=== PATIENT | male | born 1975 | race Hispanic/Latino ===

== ENCOUNTER 2018-08-18 20:19 | Observation (INO) | payer OTHER, SELFPAY ==
[2018-08-18 20:20] VITALS: BP 145/85; PULSE 112; RESP 22; TEMP 37.1; O2SAT 99; BMI 25.8
--- NOTE | 2018-08-18 21:08 | CT_ITS ---
STUDY: CT ABDOMEN AND PELVIS WITH CONTRAST REASON FOR EXAM: Male, 43 years old. Left abdominal pain and vomiting. Colonoscopy earlier today. RADIATION DOSAGE (If Supplied By Facility): CTDIvol = ( 14.43 ) mGy, DLP = ( 662.42 ) mGycm TECHNIQUE: Transaxial images were obtained from the dome of the diaphragm to the symphysis pubis with oral contrast. 100ml IV/Oral Isovue 300 was administered. Sagittal and coronal images were reconstructed. Individualized dose optimization techniques were used for this CT. COMPARISON: None. FINDINGS: There are dependent changes at both lung bases. The visualized portions of the heart are within normal limits. Normal liver. Normal gallbladder and extrahepatic biliary system. Normal spleen. Normal pancreas. Normal bilateral adrenal glands. Normal right kidney. Normal right ureter. The left kidney demonstrates slightly decreased enhancement when compared to the right. There is marked stranding and edema of the surrounding pararenal fat. There is mild hydronephrosis and ureterectasis to the level of L4 where there is nonobstructing 3 mm ureteral calculus (image 71, series 2).. The distal left ureter is unremarkable. The stomach is distended with contrast. Normal small intestine. There is gaseous distention of the proximal colon. There are scattered sigmoid diverticuli without acute inflammatory change. The appendix is visualized and appears normal. Normal abdominal aorta. Normal inferior vena cava. Normal retroperitoneum. Normal urinary bladder. Normal prostate. There is no pelvic lymphadenopathy or mass. No free air or free fluid is seen within the peritoneal cavity. Umbilical hernia of omental fat. Abdominal wall is otherwise unremarkable. Normal osseous structures. CT/Abdomen/Pelvis WITH Contrast IMPRESSION: 1. Calculus in the mid left kidney with obstructive uropathy. 2. Mild gaseous distention of proximal colon without evidence of perforation or other acute abnormality. 3. Minimal dependent changes in the lung bases. 4. Sigmoid diverticulosis. Electronically Signed: Homer Pires DO at 23:47 EDT Tel [phone], Service support ,
--- NOTE | 2018-08-18 21:10 | ED.DCSUM_ITS ---
- ER Visit Summary Date of Service: 08/18/18 Chief Complaint: Abdominal pain History of Present Illness: The patient is a 43 M presenting with abdominal pain. Patient states he has been having abdominal pain intermittently for the past 4 months. He states he has had work-ups with no known cause of his pain. He had a colonoscopy per Dr. Horta today. He states following this he has been having vomiting and worsening pain left lower quadrant. He denies fever. Denies other complaints. Physical Examination: Vitals are stable. Patient is afebrile. Alert no acute distress. HEENT exam is unremarkable. Neck is supple. Lungs are clear and equal bilaterally. Heart is regular rate and rhythm. Abdomen is soft left lower quadrant tenderness with no rebound or guarding Extremities are unremarkable. Skin is warm and dry. No focal neurologic deficit. Remainder of exam is unremarkable. Emergency Department Course and Treatment: Patient was given morphine, Zofran IV. CBC, chemistries unremarkable other than BUN 22, creatinine 1.38. CT abdomen pelvis shows calculus in the mid left kidney with obstructive uropathy. Mild gaseous distention of proximal colon without evidence of perforation or other acute abnormality. Minimal dependent changes in the lung bases. Sigmoid diverticulosis. Patient continues to have pain and was given additional morphine. His pain was intermittently improved and then returned. He was given Dilaudid. Discussed with Dr. Quintana. Patient will be admitted. Disposition: Observation Impression: Obstructive uropathy, intractable pain This note was generated with [employer] dictation software. It may contain incorrect words, spelling, and punctuation that were not noted in review of the chart prior to signing ED Disposition - Plan for ED Patient: Referrals: NOT,DEFINED [NON-STAFF] -
[2018-08-18] MEDS: morphine 8 MG/ML Syringe IV (21:21)
[2018-08-18] MEDS: Ondansetron 4 MG/2 ML Vial IV (21:22)
[2018-08-18 21:47] LABS: Anion Gap 5 (5-15); BUN 22 mg/dL (7-18); BUN/Creat Ratio 15.9 RATIO (10-20); Calcium,Total 8.7 mg/dL (8.5-10.1); Chloride 105 mmol/L (98-107); Creatinine, Serum 1.38 mg/dL (0.70-1.30); EST Glomerular Filtration Rate 59 mL/min (>60); Est Glom Filt Rate - Afr Amer 72 mL/min (>60); Estimated Creatinine Clearance 61.64 ml/min; Glucose 111 mg/dL (74-106); Potassium 3.9 mmol/L (3.5-5.1); Sodium Level 139 mmol/L (136-145)
[2018-08-18 22:00] VITALS: BP 151/78; PULSE 89; RESP 16; O2SAT 97
[2018-08-18 22:31] LABS: Absolute Lymphocyte Count 0.68 X10^3/ul (0.83-4.51); Absolute Neutrophil Count 9.6 X10^3/uL (2.0-7.7); Basophil# 0.01 X10^3/uL; Basophil% 0.1 % (0-1); Hematocrit 45.6 % (40-54); Hemoglobin 15.2 g/dl (13.0-16.5); Lymphocyte # 0.68 X10^3/ul (4.0); Lymphocyte % 6.2 % (19-41); Mean Corp Hgb Conc 33.3 g/gl (32-36); Mean Corpuscular Hgb 29.2 pg (27.0-32.0); Mean Corpuscular Volume 87.7 fL (80-94); Mean Platelet Vol. 12.5 fl (6.2-12.0); Monocyte# 0.61 X10^3/uL; Monocyte% 5.6 % (0-10); Neutrophil # 9.57 X10^3/uL (2.7-7.7); Neutrophil % 87.9 % (47-70); Platelet Count 202 K/mm3 (150-450); RBC Distribution Width CV 13.2 % (11.6-14.6); RBC Distribution Width SD 42.4 fl (35.1-43.9); White Blood Count 10.9 K/mm3 (4.4-11.0)
[2018-08-18 22:32] LABS: POSITIVE COUNT NO; POSITIVE DIFFERENTIAL NO; POSITIVE MORPHOLOGY NO
[2018-08-18] MEDS: Morphine 4 MG/ML Syringe IV (23:25)
[2018-08-19] VITALS (13 sets, daily range): BP systolic 100–136; BP diastolic 68–90; PULSE 80–109; RESP 16–20; TEMP 36.7–37.3; O2SAT 94–99; BMI 25.4; BMI 25.5; BMI 25.6
--- NOTE | 2018-08-19 00:49 | ED.RN ---
DR PAUL SPRAGUE FOR DR GAN
[2018-08-19] MEDS: HYDROmorphone 1 MG/ML Syringe IV (00:53)
--- NOTE | 2018-08-19 01:00 | NURSING ---
CALL REPORT TO ESTRADA ARAIZA AT THIS TIME.
[2018-08-19] MEDS: 0.9% Normal Saline 1,000 ML 100 ML IV ×3 (02:10→17:42)
[2018-08-19] MEDS: Ondansetron 4 MG/2 ML Vial IV (02:15)
[2018-08-19] MEDS: 0.9% NaCl Peripheral Flush Adult/Peds IV ×3 (02:15→19:31)
[2018-08-19] MEDS: Ketorolac 15 MG/ML Vial IV ×2 (07:39→19:31)
--- NOTE | 2018-08-19 07:57 | PCM.HP.STD ---
History of Present Illness Date of Admission: 08/19/18 Chief Complaint: left flank pain The patient is a 43 year old male had colonoscopy, then presented with left flank pain has a large stone in mid left ureter, admitted for pain control. Past Medical History Allergies No Known Allergies Allergy (Verified 08/18/18 20:26) Home Medications: Ambulatory Orders Medication Instructions Recorded NK 08/18/18 Surgical History: - - knees, neck and lower back surgery Psychiatric History: No pertinent psych hx Lives: Spouse/ Significant Other Smoking Status: Never smoker Tobacco Use: Non-smoker Alcohol: None Drugs: None - *Family History Maternal History Items: - - no stones. Sibling History Items: - - kidney stones Review of Systems Constitutional: Denies: Chills, Fever, Weight Change HEENT: Denies: Head Aches, Sinus Congestion, Sinus Drainage Cardiovascular: Denies: Chest Pain, Palpitations Respiratory: Denies: Cough, Shortness of breath at rest, Sputum production Gastrointestinal: Reports: Abdominal Pain, Vomiting. Denies: Nausea Genitourinary: Denies: Dysuria Musculoskeletal: Denies: Joint Pain, Joint Tenderness Skin: Denies: Rash, Wounds Neurological: Denies: Numbness, Tingling, Focal weakness Psychiatric: Denies: Anxiety, Depression, Homicidal Ideations, Suicidal Ideations Hematologic/ Lymphatic: Denies: Easy Bruising, Easy Bleeding VTE Information - Inpt Only VTE Present on Admission: No VTE Mechan Device Prophylaxis: SCD's - Physical Exam General: Alert, Oriented x3, Cooperative HEENT: Atraumatic, PERRLA, EOMI, Normocephalic Neck: Supple, No JVD, Negative Carotid Bruits Lungs: Clear to auscultation, Normal air movement Cardiovascular: Regular rate, No murmurs Abdomen: Bowel Sounds Present, Soft, Non Tender Extremities: No edema, Capillary Refill Less than 3 Seconds Skin: No rashes, No breakdown Musculoskeletal: No Tenderness to Palpation of Joints or Extremities Neurological: Cranial nerves II-XII grossly intact Psych/Mental Status: Normal Affect, Appropriate Vital Signs Temp Pulse Resp BP Pulse Ox 98.3 F 104 H 18 109/79 95 08/19/18 06:27 08/19/18 06:27 08/19/18 06:27 08/19/18 06:27 08/19/18 06:27 Oxygen Flow Rate (L/min) 2 Oxygen Delivery Method Room Air Weight: 71.7 kg Body Mass Index (BMI) 25.4 Intake and Output for Last 24 Hours 08/17/18 08/18/18 08/19/18 23:59 23:59 23:59 Intake Total 448 / 448 Output Total 350 / 350 Balance 98 / 98 Laboratory Tests Past 24 Hrs 08/18/18 08/18/18 21:20 21:20 WBC 10.9 RBC 5.20 Hgb 15.2 Hct 45.6 MCV 87.7 MCH 29.2 MCHC 33.3 RDW 13.2 RDW Differential 42.4 Plt Count 202 MPV 12.5 H Immature Gran % (Auto) 0.200 Neut % (Auto) 87.9 H Lymph % (Auto) 6.2 L [place] % (Auto) 5.6 Eos % (Auto) 0.0 Baso % (Auto) 0.1 Absolute Neuts (auto) 9.6 H Absolute Lymphs (auto) 0.68 L Total Counted Not Reportable Sodium 139 Potassium 3.9 Chloride 105 Carbon Dioxide 29.0 Anion Gap 5 BUN 22 H Creatinine 1.38 H Estim Creat Clear Calc 61.64 Est GFR (MDRD) Af Amer 72 Est GFR (MDRD) Non-Af 59 L BUN/Creatinine Ratio 15.9 Glucose 111 H Calcium 8.7 Assessment/Plan 43 yo male with kidney stone. plan to admit for pain control plan for left stent for kidney stone.
[2018-08-19 14:08] LABS: Absolute Lymphocyte Count 1.37 X10^3/ul (0.83-4.51); Absolute Neutrophil Count 9.1 X10^3/uL (2.0-7.7); Basophil# 0.01 X10^3/uL; Basophil% 0.1 % (0-1); Eosinophil# 0.01 X10^3/uL; Eosinophils% 0.1 % (0-5); Hemoglobin 14.2 g/dl (13.0-16.5); Lymphocyte # 1.37 X10^3/ul (4.0); Lymphocyte % 11.7 % (19-41); Mean Corpuscular Hgb 29.5 pg (27.0-32.0); Mean Corpuscular Volume 89.2 fL (80-94); Mean Platelet Vol. 12.4 fl (6.2-12.0); Monocyte# 1.18 X10^3/uL; Monocyte% 10.1 % (0-10); Neutrophil # 9.07 X10^3/uL (2.7-7.7); Neutrophil % 77.8 % (47-70); Platelet Count 173 K/mm3 (150-450); RBC Distribution Width CV 13.5 % (11.6-14.6); RBC Distribution Width SD 43.5 fl (35.1-43.9); Red Blood Count 4.82 M/mm3 (4.6-6.2); White Blood Count 11.7 K/mm3 (4.4-11.0)
[2018-08-19 14:09] LABS: POSITIVE COUNT NO; POSITIVE DIFFERENTIAL NO; POSITIVE MORPHOLOGY NO
[2018-08-19 14:13] LABS: International Normalized Ratio 1.2; Prothrombin Time (Protime)PT. 14.9 SECONDS (11.7-14.9)
[2018-08-19 14:14] LABS: Partial Thromboplast Time 27.6 Seconds (24.1-36.2)
--- NOTE | 2018-08-19 16:18 | PCM.DC.URO ---
Discharge Diet: Light diet - advance as tolerated Discharge Activity: Return to Normal Activity Allergies/Adverse Reactions: Allergies No Known Allergies Allergy (Verified 08/18/18 20:26) Medications to take at Discharge Ciprofloxacin [Cipro] 500 mg PO BID #6 tab 08/19/18 Hydrocodone/Acetaminophen [[place] 5-325 Tablet] 1 ea PO Q6H PRN PRN 5 Days #14 tab 08/19/18 The following prescriptions were given: Hydrocodone/Acetaminophen [[place] 5-325 Tablet] 1 ea PO Q6H PRN PRN 5 Days #14 tab PRN Reason: Pain Ciprofloxacin [Cipro] 500 mg PO BID #6 tab Primary Care Physician: NOT,DEFINED [NON-STAFF] - Test Results: Test results from this visit will be discussed in further detail at your follow-up appointment, if applicable. Please Follow Up With: Ankit Quintana MD When: my office will call you to set up surgery to laser stone
--- NOTE | 2018-08-19 16:36 | OP.PCM_ITS ---
Report of Operation Date of Procedure: 08/19/18 Pre-Operative Diagnosis: Left ureteral calculi Post-Operative Diagnosis: Same Surgery/Procedure Performed:: Cystoscopy, left retrograde pyelogram, interpretation of fluoroscopic images, left stent placement Description of Surgical Findings:: 43-year-old male taken back to the operating room and smooth induction of anesthesia he was placed in dorsolithotomy position when of the bladder with a 21 [place] rigid cystourethroscope the entire length the urethra was normal the bladder was normal the prostate was normal no tumors or stones seen within the bladder some blood was emanating from the left ureteral orifice, I think cannulated the left ureter with the Pollack catheter performed a retrograde pyelogram and inspected the images, I then advanced a wire passed a stone up in the kidney called the wire in the kidney and then over the wire a place a stent 4.5 [place] by 26 cm stent once stent was in good position I pulled the wire the stent in the kidney bladder good position drain the bladder patient anesthetic was reversed. Type of Anesthesia:: General - Admit VTE Documentation VTE Present on Admission: No
== END 2018-08-19 21:52 | disposition home or self-care (01) ==
LOC: ED 21:41 → PCU 08-19 01:23
PROVIDERS: Admitting Provider Urology; Emergency Provider Emergency Medicine; Visit Provider Urology
PROC: (CPT 52332; principal; 2018-08-19 16:00)
DX: N13.2 Hydronephrosis with renal and ureteral calculous obstruction (principal)
CPT/HCPCS: 00910; 52332; 36415; 74177; 76000; 80048; 85025; 85610; 85730; 96361; 96374; 96375; 96376; 99218; 99284; J7030; Q9967; A4216; C1769; G0378; J2405

== ENCOUNTER → 2019-01-19 15:20 | Outpatient (CLI) | payer OTHER, SELFPAY ==
[2018-08-19 10:11] VITALS: BMI 25.6
--- NOTE | 2019-01-19 15:25 | RAD_ITS ---
STUDY: X-RAY - ABDOMEN/PELVIS REASON FOR EXAM: Male, 43 years old. Left-sided flank pain TECHNIQUE: Two AP supine views of the abdomen and pelvis. COMPARISON: None. FINDINGS: The lung bases are not in the field of view of the study. There is an unremarkable bowel gas pattern. There is no demonstrated free abdominal air. The visualized liver, spleen and kidneys are grossly normal in size and morphology. There are multiple punctate radiopacities overlying the left renal silhouette which may represent nephrolithiasis. Normal visualized osseous structures. RAD/Abdomen Single View IMPRESSION: Multiple punctate radiopacities overlying the left renal silhouette which may represent nephrolithiasis. The bowel gas pattern is normal with no evidence of ileus or obstruction. Electronically Signed: Luis Levy MD at 19:15 EDT , Service support ,
== END ==
PROVIDERS: Family Provider Family Medicine; PCP Family Medicine; Referring Provider Urology; Visit Provider Urology
DX: N20.0 Calculus of kidney (principal)
CPT/HCPCS: 74018

== ENCOUNTER → 2020-09-01 08:09 | Outpatient (CLI) | payer BC, SELFPAY ==
[2018-08-19 10:11] VITALS: BMI 25.6
--- NOTE | 2020-09-01 08:20 | RAD_ITS ---
STUDY: UPPER GI AND SMALL BOWEL FOLLOW-THROUGH REASON FOR EXAM: Male, 45 years old. Dysphagia, heartburn RADIATION DOSAGE (If Supplied By Facility): CTDIvol = ( ) mGy, DLP = ( ) mGycm. Individualized dose optimization techniques were used for this CT.? FLUOROSCOPY TIME (if supplied): ( 45 ) seconds, 9 overhead films TECHNIQUE: Air-contrast, serial films tracked the barium through the small intestine COMPARISON: None. FINDINGS: [employer] films demonstrate a normal bowel gas pattern, there is retained stool. Bony structures are unremarkable. Swallowing was initiated normally. No nasopharyngeal reflux or aspiration. No Zenker''s diverticulum noted on the lateral view. Normal peristaltic activity noted in the esophagus. No evidence of a hiatal hernia but there was evidence of GE reflux. Stomach distends normally without evidence of rugal fold enlargement or mucosal ulceration. The duodenal C-loop is not elongated the ligament of Treitz is in its normal expected position left of the spine. Small bowel follow-through study shows normal mucosal pattern of the small intestine. There is no abnormal thickening or separation of bowel loops to suspect an acute inflammatory process. Transit time to the terminal ileum was approximately 60 minutes which is within normal range, spot films of the terminal ileum are free of abnormality RAD/Upper GI/w Small Bowel IMPRESSION: GE reflux Electronically Signed: Rick Will MD at 10:13 EDT , Service support ,
== END ==
PROVIDERS: PCP Family Medicine; Referring Provider Family Medicine; Visit Provider Family Medicine
DX: K21.9 Gastro-esophageal reflux disease without esophagitis (principal); R10.9 Unspecified abdominal pain
CPT/HCPCS: 74246; 74248

== ENCOUNTER 2020-10-20 17:22 | Emergency (ER) | payer BC, SELFPAY ==
[2018-08-19 10:11] VITALS: BMI 25.6
[2020-10-20 17:22] VITALS: BP 139/74; PULSE 70; RESP 18; TEMP 36.1; O2SAT 99; BMI 23.5
--- NOTE | 2020-10-20 18:31 | EKG12_ITS ---
Test Reason : CP Blood Pressure : / mmHG Vent. Rate : 065 BPM Atrial Rate : 065 BPM P-R Int : 140 ms QRS Dur : 100 ms QT Int : 396 ms P-R-T Axes : 067 037 049 degrees QTc Int : 411 ms Normal sinus rhythm with sinus arrhythmia Normal ECG Confirmed by DAVID KRISHNAMURTHY, XIANG ([id number]), editor department LANDEN PAVON ([id number]) on 10/23/2020 1:20:11 PM Referred By: FELIX Confirmed By:XIANG HERNANDEZ MD
--- NOTE | 2020-10-20 18:51 | RAD_ITS ---
STUDY: X-RAY CHEST REASON FOR EXAM: Male, 45 years old. chest pain TECHNIQUE: Frontal and lateral views of the chest COMPARISON: None. FINDINGS: The lungs are clear and expanded. There is no demonstrated pleural abnormality. Normal size heart. Normal mediastinum and gavino. Normal visualized pulmonary arteries. Normal visualized aortic arch and descending thoracic aorta. Normal visualized thoracic spine. Normal visualized ribs, clavicles, and shoulders. There is ACDF. There is no demonstrated abnormality of the visualized soft tissue structures of the upper abdomen. RAD/Chest PA and Lateral IMPRESSION: Normal x-ray examination of the chest. Electronically Signed: Barry Stern MD at 20:20 EDT Tel , Service support ,
[2020-10-20 19:07] LABS: Absolute Lymphocyte Count 2.25 X10^3/uL (0.83-4.51); Absolute Neutrophil Count 4.8 X10^3/uL (2.0-7.7); Basophil# 0.03 X10^3/uL; Basophil% 0.4 % (0-1); Eosinophil# 0.39 X10^3/uL; Eosinophils% 4.8 % (0-5); Hematocrit 45.7 % (40-54); Hemoglobin 15.1 g/dL (13.0-16.5); Lymphocyte # 2.25 X10^3/ul (0.83-4.51); Lymphocyte % 27.6 % (19-41); Mean Corpuscular Hgb 30.1 pg (27.0-32.0); Monocyte# 0.65 X10^3/uL; NRBC Flagged by Analyzer 0 % (0-5); Platelet Count 162 K/mm3 (150-450); RBC Distribution Width CV 13.2 % (11.6-14.6); Red Blood Count 5.02 M/mm3 (4.6-6.2); White Blood Count 8.1 K/mm3 (4.4-11.0)
--- NOTE | 2020-10-20 19:18 | EDS_ITS ---
HPI History of Present Illness Chief Complaint: Palpitations Detail of Chief Complaint: Chest pain per patient Informant: patient and other Onset/Context/Timing Onset: Today Activity at onset: sudden and rest Timing: Intermittent Quality: Positive for Aching and Pain Location: Left Parasternal Current Severity: Gone Maximum Severity: Severe Worsened By: Nothing Relieved By: Nothing Associated Symptoms: Positive for Nausea and Lightheadedness; Negative for Vomiting, Diaphoresis, Dyspnea, Cough, Fever, Acid Reflux and Palpitations Narrative Narrative: Patient presents with chest pain that started a early this morning. He had 3 significant episodes where he became lightheaded and slightly nauseate d. He has no cardiac risk factors. There is no radiation of the discomfort. He has no history of PE or DVT. He denies leg pain or swelling. He denies black or maroon-colored stool. He denies GI symptoms. He presently is pain- free. Prior Similar Symptoms: No Recent Illness/Hospitalization: No CVD Risk Factors: Negative for Hypertension, Diabetes, Hypercholesterolemia, Family History 1' </=55 and Smoking PE Risk Factors: Negative for Recent Travel/Surgery, Recent Immobilization, Prior DVT or PE, Cancer and OCP + Smoking + >/=35 TAD Risk Factors: Negative for Marfan's Syndrome, Hypertension and Family History PFSH PFS Medical History (Updated 10/20/20 @ 20:[address] Lito Fisher MD) Kidney stones no medical history Home Medications NK 10/20/20 [History Last Taken Unknown] Allergy/AdvReac Type Severity Reaction Status Date / Time No Known Allergies Allergy Verified 10/20/20 17:24 no surgical history Social History (Updated 10/20/20 @ 19:[address] Lito Fisher MD) household members: spouse Smoking Status: Never smoker alcohol intake: never substance use type: does not use ROS ROS ED Constitutional Constitutional ED: Denies chills, fever(s), subjective, sweats or weight loss Eyes Eyes: Denies blurry vision or change in vision ENT ENT ED: Denies ear pain, rhinorrhea or sore throat Cardiovascular Cardiovascular: Reports chest pain; Denies orthopnea, palpitations, paroxysmal nocturnal dyspnea or racing heartbeat Respiratory/Chest Respiratory/Chest: Denies cough, dyspnea, dyspnea on exertion, orthopnea, paroxysmal nocturnal dyspnea or sputum Gastrointestinal Gastrointestinal: Reports abdominal pain, nausea and other Details: Patient reports chronic abdominal pain. The abdominal pain is not related to the symptoms of prompted him to arrive. ; Denies constipation, diarrhea, melena or vomiting Genitourinary Genitourinary ED: Denies dysuria, hematuria or urinary frequency Musculoskeletal Musculoskeletal: Denies arthralgias, back pain, myalgias or neck pain Integumentary Denies rash Neurologic Neurologic: Denies headache(s), paresthesias or weakness Hematologic/Lymphatic Hematologic/Lymphatic: Denies easy bleeding or easy bruising EXAM Physical Exam Const Vital Signs: 10/20/20 17:22 10/20/20 19:33 10/20/20 19:36 Temperature 96.9 F L Temperature Source Temporal Pulse Rate 70 64 Respiratory Rate 18 18 Respiratory Effort Normal Non-Labored Respiratory Pattern Normal Blood Pressure 139/74 H Blood Pressure Mean 95 Pulse Ox 99 100 Oxygen Delivery Method Room Air Room Air 10/20/20 20:00 Temperature Temperature Source Pulse Rate 59 L Respiratory Rate 15 Respiratory Effort Respiratory Pattern Blood Pressure 112/82 H Blood Pressure Mean 92 Pulse Ox 98 Oxygen Delivery Method Room Air Heart Score History: Slightly/Non-Suspicious ECG: Normal Age: >45 - <65 years Risk Factors: No Risk Factors Troponin: </= Normal Limit Score: 1 MDM MDM MDM Narrative Medical decision making narrative: She presents with atypical chest pain. Son was uses employment assistant. Patient understood the questions but answered in Qatari. He was informed that a work-up will be undertaken to determine the cause of his pain which would include cardiac, GI and pulmonary. Appropriate blood work was ordered as well as chest x-ray and EKG. With a troponin less than 3 and onset of pain greater than 12 hours ago and normal EKG plan is to discharge to home. Lab Data Attestation: I reviewed the patient's lab results. Lab results narrative: With a normal troponin and less than 3 no further testing is needed. Patient was informed the cause of his pain is unknown. Labs: Laboratory Results - last 24 hr 10/20/20 10/20/20 19:00 19:00 WBC 8.1 RBC 5.02 Hgb 15.1 Hct 45.7 MCV 91.0 MCH 30.1 MCHC 33.0 RDW Std Deviation 44.0 H RDW Coeff of Marta 13.2 Plt Count 162 MPV 12.0 Immature Gran % (Auto) 0.200 Neut % (Auto) 59.0 Lymph % (Auto) 27.6 [place] % (Auto) 8.0 Eos % (Auto) 4.8 Baso % (Auto) 0.4 Absolute Neuts (auto) 4.8 Absolute Lymphs (auto) 2.25 Nucleated RBC % 0 Sodium 140 Potassium 3.7 Chloride 104 Carbon Dioxide 30.0 Anion Gap 6 BUN 13 Creatinine 0.89 Estim Creat Clear Calc 96.96 Est GFR (MDRD) Af Amer 118 Est GFR (MDRD) Non-Af 98 BUN/Creatinine Ratio 14.6 Glucose 97 Calcium 9.0 Troponin I High Sens < 3.0 L Radiography Chest X-Ray - ED: 2 View, Read by ED Physician (The x-ray was read by me at 1918.), Heart, Lungs, Mediastinum, Bony Structures and No Acute Disease EKG Initial EKG: Attestation: I personally reviewed and interpreted this EKG as follows: Interpretation: Sinus Rhythm (Ventricular rate is 65. VA interval is 140 ms. QS duration 100 ms. QT duration 3 to 96 ms. Sterrett is normal. EKG is normal.) Discharge Plan Triage Chief Complaint: Palpitations ED Provider: Lito Fisher Dx/Rx/DC Orders Clinical Impression: Chest pain Instructions: ED Chest Pain, Uncertain Cause Prescriptions: No Action NK RF: 0 Primary Care Provider: Raman Campbell Referrals: Raman Campblel MD [Primary Care Provider] - 3-5 Days Disposition Disposition: Home, Self Care
[2020-10-20 19:20] LABS: Anion Gap 6 (5-15); BUN 13 mg/dL (7-18); BUN/Creat Ratio 14.6 RATIO (10-20); Chloride 104 mmol/L (98-107); Creatinine, Serum 0.89 mg/dL (0.70-1.30); EST Glomerular Filtration Rate 98 mL/min (>60); Est Glom Filt Rate - Afr Amer 118 mL/min (>60); Estimated Creatinine Clearance 96.96 ml/min; Glucose 97 mg/dL (74-106); Potassium 3.7 mmol/L (3.5-5.1); Sodium Level 140 mmol/L (136-145); Troponin-I HS < 3.0 pg/mL (3.0-78.5)
[2020-10-20] MEDS: Aspirin 81 MG TAB.CHEW 324 MG PO (19:31)
[2020-10-20 19:33] VITALS: PULSE 64; RESP 18; O2SAT 100
[2020-10-20 20:00] VITALS: BP 112/82; PULSE 59; RESP 15; O2SAT 98
[2020-10-20 20:20] VITALS: BP 130/82; PULSE 63; RESP 12; O2SAT 98
== END 2020-10-20 20:21 | disposition home or self-care (01) ==
PROVIDERS: Emergency Provider Emergency Medicine; PCP Family Medicine
DX: R07.9 Chest pain, unspecified (principal)
CPT/HCPCS: 71046; 80048; 84484; 85025; 93005; 99285

== ENCOUNTER → 2023-02-03 | Outpatient (CLI) | payer BC, SELFPAY ==
--- NOTE | 2023-02-03 15:51 | CT_ITS ---
INDICATION: UNSPECIFIED ABDOMINAL PAIN EXAMINATION: CT Abdomen And Pelvis W/ Contrast Injection TECHNIQUE: Helically acquired images were obtained of the abdomen and pelvis after IV contrast. A radiation dose optimization technique was used for this scan. IV Contrast dosage and agent: Oral and amp; IV Readi-CAT and amp; 100mL Isovue-300 Oral contrast: None. COMPARISON: None. FINDINGS: Visualized lung bases: Unremarkable Liver: Unremarkable Gallbladder: Unremarkable Spleen: Unremarkable Pancreas: Unremarkable Adrenal Glands: Unremarkable Kidneys: Unremarkable Vasculature: Mild scattered aortoiliac atherosclerotic calcifications. GI Tract: The appendix is normal. Lymphadenopathy: None Peritoneum: No ascites. Bladder: Unremarkable Reproductive organs: Unremarkable Bones/Soft tissues: No suspicious osseous or soft tissue lesions CT/Abdomen/Pelvis WITH Contrast IMPRESSION: No acute abnormalities in the abdomen or pelvis. Electronically Signed: Oni Dunn MD at 22:09 EDT ,
== END | disposition home or self-care (01) ==
LOC: CT 15:50
PROVIDERS: PCP Family Medicine; Referring Provider Family Medicine; Visit Provider Family Medicine
DX: R10.9 Unspecified abdominal pain (principal)
CPT/HCPCS: 74177; Q9967